=== PATIENT | male | born 1945 | race Two or more races ===

== ENCOUNTER 2020-12-28 08:47 | Outpatient (REF) | payer MEDICARE, SELFPAY ==
[2020-12-28 11:47] LABS: Hematocrit 42.7 % (42-52); Mean Corpuscular HGB Conc 32.8 g/dl (31.0-36.0); Mean Corpuscular Volume 94.5 fL (80-98); Mean Platelet Volume 11.5 fL (9.4-12.4); Platelet Count 187 X10*3/uL (160-400); Red Blood Count 4.52 X10*6/uL (4.60-5.80); Red Cell Distribution Width 12.4 % (11.0-16.0)
[2020-12-28 12:17] LABS: Alanine Aminotransferase 20 U/L (0-40); Albumin Level 4.3 g/dL (3.5-5.0); Alkaline Phosphatase 79 U/L (39-117); Anion Gap 11 (12-20); Aspartate Amino Transferase 17 U/L (5-37); Bilirubin Total 2.1 mg/dL (0.0-1.0); Blood Urea Nitrogen 18 mg/dL (9-16); Calcium 9.2 mg/dL (8.4-10.2); Carbon Dioxide 26 mmol/L (22-29); Chloride 110 mmol/L (96-108); Estimated Glomerular Filt Rate > 60; Glucose Random 80 mg/dL (60-115); Lipase 21 U/L (8-78); Potassium 4.6 mmol/L (3.3-5.1); Sodium 142 mmol/L (135-145); Total Protein 6.5 g/dL (6.5-8.0)
[2020-12-31 15:16] LABS: Transglutaminase Ab IgG 1 U/mL; Transglutaminase IgA 1 U/mL
== END 2020-12-28 08:48 | disposition home or self-care (01) ==
LOC: HO.LAB 08:47
PROVIDERS: PCP Internal Medicine; Visit Provider Nurse Practitioner Family
DX: R10.11 Right upper quadrant pain (principal); R14.0 Abdominal distension (gaseous); R19.7 Diarrhea, unspecified; K58.9 Irritable bowel syndrome, unspecified; K63.89 Other specified diseases of intestine; R10.9 Unspecified abdominal pain; K58.2 Mixed irritable bowel syndrome; K57.90 Diverticulosis of intestine, part unspecified, without perforation or abscess without bleeding; Z79.899 Other long term (current) drug therapy
CPT/HCPCS: 36415; 80053; 83516; 83690; 85027; 86140; 99202

== ENCOUNTER 2021-01-03 12:33 | Outpatient (REF) | payer MEDICARE, SELFPAY | END 2021-01-03 12:34 | disposition home or self-care (01) | LOC: HO.LNP 12:33 | PROVIDERS: Visit Provider Nurse Practitioner Family | DX: K21.9 Gastro-esophageal reflux disease without esophagitis (principal) | CPT/HCPCS: 87338 ==

== ENCOUNTER 2021-02-07 12:38 | Outpatient (REF) | payer MEDICARE, SELFPAY ==
[2021-02-07 15:28] LABS: Bilirubin Direct 0.7 mg/dL (0.0-0.5); Gamma Glutamyl Transpeptidase 16 U/L (11-51)
== END 2021-02-07 12:39 | disposition home or self-care (01) ==
LOC: HO.LAB 12:38
PROVIDERS: PCP Internal Medicine; Referring Provider Internal Medicine; Visit Provider Nurse Practitioner Family
DX: R10.9 Unspecified abdominal pain (principal); K58.2 Mixed irritable bowel syndrome; R19.7 Diarrhea, unspecified; R74.8 Abnormal levels of other serum enzymes
CPT/HCPCS: 36415; 82248; 82977; 99212

== ENCOUNTER → 2021-03-07 07:13 | Outpatient (REF) | payer MEDICARE, SELFPAY ==
--- NOTE | ~2021-03-07 | NM_ITS ---
EXAMINATION: BILIARY TRACT IMAGING STUDY WITH CCK CLINICAL INFORMATION: Abdominal pain. Patient states abdominal pain for one year.. COMPARISON: No previous imaging studies are available for comparison.. TECHNIQUE: Serial gamma scintillation camera images were obtained over the abdomen for a total observation period of 92 minutes following the intravenous administration of 5 mCi Tc-99m Mebrofenin. FINDINGS: There is good concentration of activity in the liver by 5 minutes post injection. Biliary activity is visualized by 10 minutes. The gallbladder is well visualized by 35 minutes. Small bowel is well visualized by 25 minutes. At 90 minutes post radiopharmaceutical injection, a 30-minute infusion of 1.2 micrograms Sincalide was then begun and an additional 30 minutes of images were obtained. There is good emptying of the gallbladder. By the end of the study there is good clearance of activity from the liver and visualization of diffuse small bowel activity. The calculated gallbladder ejection fraction is 72% (normal gallbladder ejection fraction is greater than 35%). NM/NM hepatobiliary w pharm IMPRESSION: Visualization of the gallbladder is evidence of a patent cystic duct and strong evidence against the diagnosis of acute cholecystitis. The common bile duct is patent. Gallbladder emptying and ejection fraction are normal. Liver function appears normal.
== END ==
LOC: HO.NUCMED 07:13
PROVIDERS: Visit Provider Nurse Practitioner Family
DX: R10.9 Unspecified abdominal pain (principal)
CPT/HCPCS: 78227; A9537; J2805

== ENCOUNTER 2021-03-15 09:27 | Outpatient (REF) | payer MEDICARE, SELFPAY ==
[2021-03-15 12:09] LABS: Bilirubin Direct 0.8 mg/dL (0.0-0.5); C Reactive Protein 0.14 mg/dL (< or = 0.50)
== END 2021-03-15 09:28 | disposition home or self-care (01) ==
LOC: HO.LAB 09:27
PROVIDERS: PCP Internal Medicine; Referring Provider Internal Medicine; Visit Provider Nurse Practitioner Family
DX: R10.9 Unspecified abdominal pain (principal); R14.0 Abdominal distension (gaseous); R17 Unspecified jaundice; K58.9 Irritable bowel syndrome, unspecified
CPT/HCPCS: 36415; 82248; 86140; 99212

== ENCOUNTER 2021-03-17 08:21 | Outpatient (REF) | payer MEDICARE, SELFPAY ==
[2021-03-17 09:31] LABS: Bilirubin Direct 0.7 mg/dL (0.0-0.5)
[2021-03-17 09:41] LABS: HIV AB/AG Nonreactive (Nonreactive); HIV Num 1 0.07 S/CO (0.00-0.99); ~HepC Num1 0.06 S/CO (0.00-0.79); ~Hepatitis C Antibody Nonreactive (Nonreactive)
[2021-03-17 09:46] LABS: HBS Num1 0.52 mIU/mL (0-7.99); HBc Num1 0.05 S/CO (0.00-0.79); Hepatitis A Antibody IgM 0.14 Index (0-0.79); Hepatitis B Core Antibody Nonreactive (Nonreactive); Hepatitis B Surface Antigen Negative (Negative); ~Hepatitis A Antibody IgM Nonreactive (Nonreactive); ~Hepatitis B Surface Antibody NONREACTIVE (Nonreactive)
[2021-03-17 09:53] LABS: Erythrocyte Sedimentation Rate 6 MM/HR (0-15); Ferritin 97 ng/mL (20-250)
[2021-03-18 11:42] LABS: Ceruloplasmin 31 mg/dL (18-36)
[2021-03-20 12:41] LABS: Alpha Fetoprotein 1.7 ng/mL (<6.1)
[2021-03-20 12:56] LABS: Anti Nuclear Antibody Screen NEGATIVE (NEGATIVE)
[2021-03-22 14:07] LABS: Mitochondrial Antibodies NEGATIVE (NEGATIVE)
[2021-03-22 16:02] LABS: Smooth Muscle Antibody <20 U (<20)
[2021-03-23 18:32] LABS: FIB-ALT 11 U/L (9-46); FIB-Alpha-2-Macroglobulin 336 mg/dL (106-279); FIB-Apolipoprotein A1 123 mg/dL (94-176); FIB-GGT 12 U/L (3-70); FIB-Haptoglobin 120 mg/dL (43-212); FIB-Total Bilirubin 2.7 mg/dL (0.2-1.2); Liver Fibrosis Score 0.84; Liver Fibrosis Stage F4; Nec Inflam Act Grade A0; Nec Inflam Act Score 0.07
== END 2021-03-17 08:22 | disposition home or self-care (01) ==
LOC: HO.LAB 08:21
PROVIDERS: PCP Internal Medicine; Visit Provider Nurse Practitioner Family
DX: R79.89 Other specified abnormal findings of blood chemistry (principal); R74.8 Abnormal levels of other serum enzymes; R17 Unspecified jaundice; R10.9 Unspecified abdominal pain
CPT/HCPCS: 36415; 81596; 82105; 82248; 82390; 82728; 85652; 86038; 86039; 86255; 86256; 86704; 86706; 86709; 86803; 87340; 87389

== ENCOUNTER 2021-03-17 08:48 | Outpatient (REF) | payer MEDICARE, SELFPAY ==
[2021-03-17 10:00] LABS: Leukocytes Stool Qualitative NEGATIVE (NEGATIVE)
[2021-03-22 21:56] LABS: Pancreatic Elastase-1 118 mcg/g
== END 2021-03-17 08:49 | disposition home or self-care (01) ==
LOC: HO.LNP 08:48
PROVIDERS: Visit Provider Nurse Practitioner Family
DX: R10.9 Unspecified abdominal pain (principal); R79.89 Other specified abnormal findings of blood chemistry; R74.8 Abnormal levels of other serum enzymes; R17 Unspecified jaundice
CPT/HCPCS: 82656; 87045; 87046; 89055

== ENCOUNTER 2021-04-11 10:02 | Outpatient (REF) | payer MEDICARE, SELFPAY ==
--- NOTE | ~2021-04-11 | MR_ITS ---
EXAMINATION: MR ABDOMEN WITHOUT AND WITH CONTRAST CLINICAL INFORMATION: Abdominal pain for the past 2 years with elevated liver enzymes. COMPARISON: None. TECHNIQUE: MR abdomen was performed without and with use of 6 mL intravenous Gadavist gadolinium contrast. Postcontrast images are performed in multiphase dynamic sequences. Imaging was performed in 3 planes. FINDINGS: LUNG BASES: Mild cardiomegaly. Lung bases are clear. LIVER, GALLBLADDER, AND BILIARY TREE: The liver is normal in size and shape with some decreased T2 signal and minimal gain of signal in the ajn-vw-huqch dual-echo images, suggesting the possibility of iron overload. There are no focal liver lesions. The gallbladder is within normal limits. There is no biliary ductal dilatation. PANCREAS: Mildly atrophic without focal abnormalities. The main pancreatic duct is nondilated. SPLEEN: Normal. ADRENAL GLANDS: Normal. KIDNEYS AND URETERS: The kidneys are normal in size, shape, and enhance symmetrically. There are several subcentimeter T2 bright avascular lesions, favoring to represent cysts. One of these lesions in the lateral surface of the midpole of the right kidney is T2 dark and T1 bright most consistent with a proteinaceous/hemorrhagic cyst. No hydronephrosis. No perinephric stranding. GASTROINTESTINAL TRACT: Small hiatal hernia. No bowel obstruction. No ascites or fluid collection. ABDOMINAL WALL: No significant hernia is appreciated. LYMPH NODES: No lymphadenopathy. VASCULAR: Unremarkable. OSSEOUS STRUCTURES: No acute or aggressive osseous abnormalities. MR/MR abdomen wo/w con IMPRESSION: Decreased T2 signal of the liver with some minimal gain of signal in the tvt-iq-ledpn dual-echo images, suggesting the possibility of iron overload. Otherwise, the liver is normal in size and shape without focal lesions.
[2021-04-11 09:06] LABS: Blood Urea Nitrogen 21 mg/dL (9-16); Estimated Glomerular Filt Rate > 60
[2021-04-12 23:26] LABS: Immunoglobulin G Subclass 1 259 mg/dL (382-929); Immunoglobulin G Subclass 2 376 mg/dL (241-700); Immunoglobulin G Subclass 3 54 mg/dL (22-178); Immunoglobulin G Subclass 4 18.2 mg/dL (4-86); Immunoglobulin G Total 764 mg/dL (600-1540)
== END 2021-04-11 10:03 | disposition home or self-care (01) ==
LOC: HO.MRI 10:02
PROVIDERS: Visit Provider Nurse Practitioner Family
DX: K86.89 Other specified diseases of pancreas (principal); K74.60 Unspecified cirrhosis of liver; R10.11 Right upper quadrant pain
CPT/HCPCS: 36415; 74183; 82565; 82784; 84520; A9585

== ENCOUNTER 2021-04-21 07:55 | Outpatient (REF) | payer MEDICARE, SELFPAY ==
--- NOTE | ~2021-04-21 | US_ITS ---
EXAMINATION: US COMPLETE ABDOMEN WITH LIVER ELASTOGRAPHY CLINICAL INFORMATION: Abnormal LFTs. COMPARISON: None. TECHNIQUE: Real-time imaging of the abdominal viscera. Noninvasive ultrasound liver fibrosis assessment is performed using Kris ElastPQ point quantification shear wave elastography (pSWE) with a C5-2 MHz transducer. Multiple elastography samples are obtained. FINDINGS: PANCREAS: Normal. The visualized pancreatic head and body are normal in appearance. The remainder of the pancreas is obscured from visualization by the overlying bowel gas. ABDOMINAL AORTA: The proximal, middle, and distal aortic segments are normal in caliber. INFERIOR VENA CAVA: Visualized portions are normal. LIVER: The liver demonstrates normal size, contour and echogenicity. No focal lesion or intrahepatic biliary duct dilatation. There are multiple echogenic calcifications with the largest calcification measuring 3.2 cm long. The right lobe measures 16.1 cm in length. The left lobe measures 10.2 cm in length. Portal flow is hepatopedal. Shear wave liver elastography median stiffness is 1.35 m/s (reference: normal median stiffness is 1.3 m/s or less). IQR/median stiffness to assess sampling precision is 0.05 (reference: good quality data set is IQR/median stiffness of 0.15 or less). GALLBLADDER: Normal. The gallbladder is physiologically distended without evidence of stones, sludge, polyps, wall thickening or pericholecystic fluid. COMMON BILE DUCT: Normal in caliber measuring 0.5 cm in diameter. RIGHT KIDNEY: There are several anechoic cysts. The largest cyst midpole measures 1.4 x 1.0 x 1.3 cm. Smaller cyst laterally in the midpole measures 0.8 x 0.5 x 0.8 cm. No hydronephrosis. No renal calculi or focal parenchymal lesions. The kidney measures 10.3 cm in maximum dimension. LEFT KIDNEY: Normal. No hydronephrosis. No renal calculi or focal parenchymal lesions. The kidney measures 10.9 cm in maximum dimension. SPLEEN: Normal. The spleen measures 12.1 cm in maximum dimension. FREE FLUID: None. US/US abdomen comp w elastography IMPRESSION: 1. There are multiple echogenic clustered linear calcifications, together measures 3.2 cm in length. No solid liver lesion seen. Right renal cysts largest measuring 1.4 cm. 2. Liver elastography: Median liver stiffness measures 1.35 m/s, borderline. cACLD ruled out. REFERENCE: Society of Radiologists in Ultrasound Liver Stiffness Thresholds (2020): LIVER STIFFNESS THRESHOLDS: *Liver Stiffness equal or less than 1.3 m/s: High probability of being normal. *Liver Stiffness less than 1.7 m/s: In the absence of other known clinical signs, rules out compensated advanced chronic liver disease. *Liver Stiffness 1.7-2.1 m/s: Suggestive of compensated advanced chronic liver disease but need further test for confirmation. *Liver Stiffness over 2.1 m/s: Rules in compensated advanced chronic liver disease. *Liver Stiffness over 2.4 m/s: Suggestive of clinically significant portal hypertension. QUALITY OF DATA SET: *IQR/Median value equal or less than 0.15 implies a quality data set. *IQR/Median value over 0.15 implies a poor quality data set. SIGNIFICANT CHANGE FROM PRIOR EXAM: Significant change if liver stiffness measurement is 10% or greater from prior exam. OTHER CONSIDERATIONS: The stage of liver fibrosis may be overestimated in the setting of acute hepatitis, liver inflammation, elevated liver function tests, hepatic vascular congestion, obstructive cholestasis, nonfasting state, and infiltrative diseases such as amyloidosis and lymphoma. In some patients with NAFLD, the liver stiffness thresholds for compensated advanced chronic liver disease may be lower. In causes other than viral hepatitis and NAFLD, liver stiffness thresholds are not well established.
== END 2021-04-21 07:56 | disposition home or self-care (01) ==
LOC: HO.US 07:55
PROVIDERS: PCP Internal Medicine; Visit Provider Nurse Practitioner Family
DX: R74.8 Abnormal levels of other serum enzymes (principal); Q61.02 Congenital multiple renal cysts
CPT/HCPCS: 76705; 76981

== ENCOUNTER → 2021-05-03 07:02 | Outpatient (REF) | payer MEDICARE, SELFPAY ==
--- NOTE | ~2021-05-03 | NM_ITS ---
EXAMINATION: MA RADIONUCLIDE SOLID FOOD GASTRIC EMPTYING 4-HOUR STUDY CLINICAL INFORMATION: Abdominal distention COMPARISON: None TECHNIQUE: A standard meal consisting of 4 oz of Egg Beaters brand tagged with 1 microcuries Tc-99m Sulfur Colloid, 8 oz water and 2 slices of toast with jelly was administered orally to the patient. Images were obtained using a dual head gamma camera in the anterior and posterior projections over of the stomach immediately post ingestion and at hourly intervals up to 4 hours post ingestion. The anterior and posterior counts at each time interval were averaged using the geometric mean and expressed as percentage of the immediate post ingestion counts. FINDINGS: There is good visualization of activity in the stomach immediately post ingestion. As the study progresses, there is good clearance of activity from the stomach and visualization of progressively increasing small bowel activity. By the end of the study, there is almost no retention noted in the stomach. Retention in the stomach at each time interval was: 1 hour 52% (normal 37%-90%) 2 hours 18% (normal 30%-60%) 3 hours 6% 4 hour image not obtained NM/MA gastric emptying study IMPRESSION: Prompt gastric emptying. No scintigraphic evidence for delayed gastric emptying
[2021-05-03 08:01] LABS: Hematocrit 43.2 % (42.0-52.0); Hemoglobin 14.1 g/dl (14.0-18.0); Mean Corpuscular HGB Conc 32.6 g/dl (31.0-36.0); Mean Corpuscular Hemoglobin 31.3 pg (27.0-33.0); Mean Platelet Volume 12.5 fL (9.4-12.4); Platelet Count 135 X10*3/uL (160-400); Red Cell Distribution Width 12.4 % (11.0-16.0); White Blood Count 8.6 X10*3/uL (4.8-10.8)
[2021-05-03 08:04] LABS: Prothrombin Time 11.6 SEC (9.9-13.0)
[2021-05-03 08:24] LABS: Alanine Aminotransferase 20 U/L (0-40); Albumin Level 4.4 g/dL (3.5-5.0); Alkaline Phosphatase 98 U/L (39-117); Aspartate Amino Transferase 17 U/L (5-37); Bilirubin Direct 0.7 mg/dL (0.0-0.5); Bilirubin Total 2.2 mg/dL (0.0-1.0); Iron 102 mcg/dL (45-160); Percent Iron Saturation 39 % (15-50); Total Iron Binding Capacity 263 mcg/dL (228-428); Total Protein 6.8 g/dL (6.5-8.0); Unsaturated Iron Binding 161 ug/dL
[2021-05-03 08:57] LABS: Folate 18.5 ng/mL (> or = 4.0); Vitamin B12 205 pg/mL (200-900)
[2021-05-07 15:01] LABS: Vitamin D 25-OH, D2 <4 ng/mL; Vitamin D 25-OH, D3 19 ng/mL; Vitamin D 25-OH, Total 19 ng/mL (30-100)
== END ==
LOC: HO.NUCMED 07:02
PROVIDERS: PCP Internal Medicine; Visit Provider Nurse Practitioner Family
DX: R19.7 Diarrhea, unspecified (principal); E55.9 Vitamin D deficiency, unspecified; K74.60 Unspecified cirrhosis of liver; R14.0 Abdominal distension (gaseous)
CPT/HCPCS: 36415; 78264; 80076; 82306; 82607; 82746; 83540; 85027; 85610; A9541

== ENCOUNTER → 2021-05-10 09:52 | Outpatient (BNVA) | payer MEDICARE, SELFPAY | PROVIDERS: PCP Internal Medicine; Referring Provider Internal Medicine; Visit Provider Nurse Practitioner Family | DX: K86.89 Other specified diseases of pancreas (principal); K59.04 Chronic idiopathic constipation; K75.81 Nonalcoholic steatohepatitis (NASH); K74.60 Unspecified cirrhosis of liver; R10.9 Unspecified abdominal pain; R14.0 Abdominal distension (gaseous) | CPT/HCPCS: 99212 ==

== ENCOUNTER → 2021-05-24 10:48 | Outpatient (BNVA) | payer MEDICARE, SELFPAY | PROVIDERS: PCP Internal Medicine; Referring Provider Internal Medicine; Visit Provider Nurse Practitioner Family | DX: K86.89 Other specified diseases of pancreas (principal); K75.81 Nonalcoholic steatohepatitis (NASH); K74.60 Unspecified cirrhosis of liver; R10.9 Unspecified abdominal pain | CPT/HCPCS: 99212 ==

== ENCOUNTER 2021-11-07 11:16 | Outpatient (REF) | payer MEDICARE, SELFPAY ==
[2021-11-07 12:30] LABS: Amylase 69 U/L (28-100); Lipase 15 U/L (8-78)
[2021-11-12 13:37] LABS: Vitamin D 25-OH, D2 <4 ng/mL; Vitamin D 25-OH, D3 25 ng/mL; Vitamin D 25-OH, Total 25 ng/mL (30-100)
== END 2021-11-07 11:17 | disposition home or self-care (01) ==
LOC: HO.LAB 11:16
PROVIDERS: PCP Family Medicine; Visit Provider Nurse Practitioner Family
DX: K86.89 Other specified diseases of pancreas (principal); R10.9 Unspecified abdominal pain; K75.81 Nonalcoholic steatohepatitis (NASH); K74.60 Unspecified cirrhosis of liver; K58.9 Irritable bowel syndrome, unspecified; E55.9 Vitamin D deficiency, unspecified
CPT/HCPCS: 36415; 82150; 82306; 83690; 99212

== ENCOUNTER 2022-03-07 11:11 | Outpatient (REF) | payer MEDICARE, SELFPAY ==
[2022-03-07 13:03] LABS: Lipase 30 U/L (8-78)
[2022-03-07 13:27] LABS: TSH reflex Free T4 1.79 uIU/mL (0.32-4.0)
== END 2022-03-07 11:12 | disposition home or self-care (01) ==
LOC: HO.LAB 11:11
PROVIDERS: PCP Internal Medicine; Visit Provider Nurse Practitioner Family
DX: K58.1 Irritable bowel syndrome with constipation (principal); K86.89 Other specified diseases of pancreas; K75.81 Nonalcoholic steatohepatitis (NASH); K74.60 Unspecified cirrhosis of liver
CPT/HCPCS: 36415; 83690; 84443; 99212

== ENCOUNTER → 2022-06-01 10:22 | Outpatient (BNVA) | payer MEDICARE, SELFPAY | PROVIDERS: PCP Internal Medicine; Visit Provider Nurse Practitioner Family | DX: K86.89 Other specified diseases of pancreas (principal); R10.9 Unspecified abdominal pain; R14.0 Abdominal distension (gaseous); K58.9 Irritable bowel syndrome, unspecified | CPT/HCPCS: 99212 ==

== ENCOUNTER 2022-06-27 08:47 | Outpatient (REF) | payer MEDICARE, SELFPAY ==
--- NOTE | ~2022-06-27 | MR_ITS ---
EXAMINATION: MR ABDOMEN WITHOUT AND WITH CONTRAST CLINICAL INFORMATION: Pancreatic insufficiency, abdominal discomfort. COMPARISON: MR abdomen 04/11/2021 TECHNIQUE: MRI of the abdomen before and after the IV administration of 5.5 mL of Gadavist was obtained using routine sequences. Heavily T2 weighted MRCP sequences were also obtained. FINDINGS: Exam is limited by the ssyev-ho-nnxh portions of the liver, spleen, stomach, the kidneys and right adrenal gland were excluded from the axial kvtnu-go-atvo, including a dynamic postcontrast sequences. LUNG BASES: The visualized lung bases are unremarkable. KIDNEYS AND URETERS: Unremarkable where imaged. GALLBLADDER: Unremarkable. LIVER AND BILIARY TREE: Unremarkable where imaged. PANCREAS: Pancreas is mildly atrophic. No pancreatic duct dilatation. No variant pancreatic ductal anatomy. No peripancreatic fluid collection or peripancreatic inflammatory change. SPLEEN: Unremarkable where imaged. ADRENAL GLANDS: Unremarkable where imaged. GASTROINTESTINAL TRACT: Unremarkable where imaged. LYMPH NODES: No lymphadenopathy. VASCULAR: Unremarkable ABDOMINAL WALL: Unremarkable. OSSEOUS STRUCTURES: T2 hyperintense signal in the T12 vertebral body with saturates out on fat suppression which may reflect focal fatty infiltration. MR/MR abdomen wo/w con IMPRESSION: Pancreas is mildly atrophic. No pancreatic duct dilatation or variant pancreatic ductal anatomy. Exam is limited by the xlviv-sb-suip, as detailed above and multiple solid organs were not included. Patient can return for repeat imaging at no charge if warranted.
== END 2022-06-27 08:48 | disposition home or self-care (01) ==
LOC: HO.MRI 08:47
PROVIDERS: Visit Provider Nurse Practitioner Family
DX: R10.9 Unspecified abdominal pain (principal); K86.89 Other specified diseases of pancreas
CPT/HCPCS: 74183; A9585

== ENCOUNTER → 2022-08-27 08:57 | Outpatient (BNVA) | payer MEDICARE, SELFPAY | PROVIDERS: PCP Internal Medicine; Visit Provider Nurse Practitioner Family | DX: K58.2 Mixed irritable bowel syndrome (principal); K86.89 Other specified diseases of pancreas; Z79.899 Other long term (current) drug therapy | CPT/HCPCS: 99212 ==

== ENCOUNTER 2022-12-31 08:36 | Outpatient (REF) | payer MEDICARE, SELFPAY ==
[2022-12-31 11:02] LABS: Alanine Aminotransferase 38 U/L (0-40); Albumin Level 4.1 g/dL (3.5-5.0); Alkaline Phosphatase 89 U/L (39-117); Aspartate Amino Transferase 24 U/L (5-37); Bilirubin Direct 0.3 mg/dL (0.0-0.5); Bilirubin Total 3.2 mg/dL (0.0-1.0); Lipase 9 U/L (8-78); Magnesium 2.1 mg/dL (1.6-2.6); Total Protein 6.5 g/dL (6.5-8.0)
[2022-12-31 11:32] LABS: Folate 15.3 ng/mL (> or = 4.0); Vitamin B12 358 pg/mL (200-900)
[2023-01-04 15:08] LABS: Vitamin D 25-OH, D2 <4 ng/mL; Vitamin D 25-OH, D3 20 ng/mL; Vitamin D 25-OH, Total 20 ng/mL (30-100)
[2023-01-07 15:43] LABS: Nicotinamide 21 ng/mL; Vit B3 - Nicotinic Acid <20 ng/mL
== END 2022-12-31 08:37 | disposition home or self-care (01) ==
LOC: HO.LAB 08:36
PROVIDERS: Visit Provider Nurse Practitioner Family
DX: R10.9 Unspecified abdominal pain (principal); R19.7 Diarrhea, unspecified; E55.9 Vitamin D deficiency, unspecified; K86.89 Other specified diseases of pancreas; K58.2 Mixed irritable bowel syndrome
CPT/HCPCS: 36415; 80076; 82306; 82607; 82746; 83690; 83735; 84591; 99212

== ENCOUNTER 2022-12-31 08:36 | Outpatient (AMB) | payer MEDICARE, SELFPAY ==
--- NOTE | 2022-12-31 08:54 | MHC.OFFVIS ---
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 Discussed with patient that higher dose could help him with abdominal bloating and loose stools. No change seen on MRI. Athrophic pancreas with no lesions. IBS (irritable bowel syndrome) Postprandial abdominal bloating and loose stools. Most likely related to patient's pancreatic insufficiency. Increase Creon for now. Discussed with him low FODMAP diet as well. Patient was encouraged to take Citrucel to help bulk stools. Patient will also try to get probiotic. Patient will take dicyclomine after 2 large meals to prevent cramping and loose stools. I will see the patient in 3 months, sooner on as needed basis. Patient and his family members are all agreeable to plan of care and verbalize understanding of instructions. They were given the opportunity to ask questions and all questions answered. ? Thank you for allowing me to participate in his care Plan Medications New unexlw-gdlvpzxh-bheviep 24,000-76,000 -120,000 unit (Creon) administer with meals and/or snacks 1 cap PO QID 120 caps 2RF K58.9 Discontinued wedrmu-lfrzpzou-rkfraqh 6,000-19,000 -30,000 unit (Creon) do not exceed 10,000 unit/kg lipase per 24 hrs Discontinued Reason: Doctor's Order 1 cap PO .qid ac 120 caps 3RF TODAY'S VISIT Patient is here today for. Patient is accompanied by his sister and [id number]. 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 Patient's family is helping as patient has memory issues. End of September patient was hospitalized for stroke. Symptoms were difficulty speaking and swallowing. Patient had aspiration pneumonia and was on antibiotics. Patient was sent to rehab after the admission for antibiotic therapy. Since then patient has last appetite. Not eating as much, however sister reports that he has not lost any weight. Patient last lose weight in the hospital. Patient denies any nausea or vomiting. Reports left upper quadrant pain, postprandial loose stools. Creon was changed to Zenpep during hospitalization. Patient still is taking that 4 times a day and reports to be doing well on it. Patient denies feeling constipated. Denies melena, hematochezia, unintentional weight loss or ribbon like stools. Patient denies dyspepsia, dysphagia or odynophagia. [facility] Medical History Irritable bowel syndrome Pancreatic insufficiency Surgical History History of esophagogastroduodenoscopy (EGD) Hx of colonoscopy Family History Mother HTN (hypertension) Cancer Sister HTN (hypertension) Cancer Father Cancer Social History Household Members: Family Alcohol intake: never Patient Tobacco Use Status: Never used Tobacco Review of Systems Const Denies weight gain and Denies weight loss ENT Reports no additional complaints, Denies dysphagia and Denies odynophagia Card Reports no additional complaints Resp Reports no additional complaints GI Reports abdominal pain, Denies belching, Denies melena, Reports bloating, Denies change in bowel habits, Denies dysphagia, Denies excessive flatus, Denies dyspepsia, Denies heartburn, Denies diarrhea, Denies loose stools, Denies nausea, Denies odynophagia and Denies vomiting Reports no additional complaints Musc Reports no additional complaints Neuro Reports no additional complaints Psych Reports no additional complaints Endo Reports no additional complaints Physical Exam Vital Signs: Last Vital Signs Pulse 48 L 12/31/22 08:55 BP 161/72 H 12/31/22 08:55 BMI result Body Mass Index 19.5 Const General: healthy appearing, no acute distress and well developed Nutritional Appearance: well nourished Orientation/consciousness: patient oriented x3 HEENT Head: Yes normal to inspection, Yes normocephalic and Yes atraumatic Face and sinus: Yes normal facial exam Mouth: Normal oral and palatal mucosa present Throat: Yes posterior oropharynx normal, Yes tonsils normal and Yes uvula midline Eyes General: appearance normal, both eyes and all related structures Neck Neck: Yes normal visual inspection, Yes full ROM and Yes trachea midline Thyroid: Thyroid normal Resp Effort & Inspection: normal respiratory effort, able to speak in complete sentences, no tracheal deviation and symmetric chest movement Auscultation: clear to auscultation bilaterally Cardio Rate: regular rate Heart sounds: S1 normal heart sound present and S2 normal heart sound present GI Inspection: Yes normal to inspection and No distended Palpation (GI): Soft to palpation, not firm, nontender and No hepatosplenomegaly present Auscultation: normal bowel sounds General: Yes no CVA tenderness Back/Spine/Pelvis Back: no CVA tenderness Skin General skin exam: elasticity normal, turgor normal and dry skin Neuro General: patient oriented x3 Psych Appearance: grossly normal Mental Status: mental status grossly normal Speech and movement: Normal speech and movement present Affect: normal affect Assessment & Plan Assessment & Plan (1) Pancreatic insufficiency: Code(s): K86.89 - Other specified diseases of pancreas Plan: Continue enzyme therapy. (2) IBS (irritable bowel syndrome): Code(s): K58.9 - Irritable bowel syndrome without diarrhea Qualifiers: Irritable bowel syndrome type: with both diarrhea and constipation Qualified Code(s): K58.2 - Mixed irritable bowel syndrome Plan: Postprandial loose stools. Patient was encouraged to avoid dietary triggers. Follow FODMAP diet. Will check vitamin-D, B12, B6, magnesium levels will check lipase and liver enzymes. Will follow up with patient in 6 months, sooner on as needed basis. Patient and his sister are agreeable to plan of care and verbalizes understanding of instructions. They were given the opportunity to ask questions and all questions answered. Thank you for allowing me to participate in his care Orders: Orders Lipase Today R10.9 - Unspecified abdominal pain Liver Panel Today R10.9 - Unspecified abdominal pain Vitamin B12 and Folate Today R19.7 - Diarrhea, unspecified Vitamin D 25-OH (D2 and D3) Today E55.9 - Vitamin D deficiency, unspecified Vitamin B3 (Niacin) Today K86.89 - Other specified diseases of pancreas Magnesium Today K58.9 - Irritable bowel syndrome without diarrhea, K86.89 - Other specified diseases of pancreas Medications: New lxoydp-ssryuwak-glltxyp 20,000-63,000- 84,000 unit (Zenpep) administer with meals and/or snacks 1 cap PO BID 120 caps 3RF Refilled methylcellulose (laxative) (Citrucel) take it with full glass of water 500 mg PO DAILY 90 tabs 2RF K59.00 - Constipation, unspecified Discontinued jimbfy-kdumrqou-cttlkmm 24,000-76,000 -120,000 unit (Creon) administer with meals and/or snacks Discontinued Reason: Doctor's Order 1 cap PO QID 120 caps 2RF K58.9 - Irritable bowel syndrome without diarrhea Coding Level of Care Code Est Pt Level 4 (71099) Diagnoses Pancreatic insufficiency K86.89 IBS (irritable bowel syndrome) K58.2 Irritable bowel syndrome type: with both diarrhea and constipation Time Spent (min) 35 Comment 20 minutes spent with patient and additional 15 minutes spent reviewing his records
[2022-12-31 08:55] VITALS: BP 161/72; PULSE 48; BMI 19.5
== END 2022-12-31 09:24 | disposition home or self-care (01) ==
PROVIDERS: Visit Provider Nurse Practitioner Family
DX: K86.89 Other specified diseases of pancreas (principal); K58.2 Mixed irritable bowel syndrome
CPT/HCPCS: 99214

== ENCOUNTER 2023-03-27 15:18 | Outpatient (AMB) | payer MEDICARE, SELFPAY ==
[2023-03-27 15:19] VITALS: BP 178/70; PULSE 51; O2SAT 100; BMI 18.6
--- NOTE | 2023-03-27 15:19 | MHC.OFFVIS ---
Intake Vital Signs 03/27/23 15:19 Height 5 ft 5 in Weight 111 lb 15.917 oz BMI 18.6 BP 178/70 H Blood Pressure Location Lt brachial Position Sitting Pulse 51 Pulse Source Pulse Oximeter Pulse Oximetry (%) 100 Oxygen Delivery Method Room Air Intake Visit Reasons: jaundice Intake Note: Pt presents to the office today for c/o jaundice. Pts nephew states that he went to [facility] due to a hernia in February and pts nephew said bloods test were done and his PCP was concerned about his billirubin results. Pt states he gets diarrhea sometimes but denies nausea or vomiting. Accompanied by: Sister Allergies No Known Allergies Allergy (Verified 03/27/23 15:24) HPI jaundice HPI Details LAST VISIT Pancreatic insufficiency Continue enzyme therapy. IBS (irritable bowel syndrome) Postprandial loose stools. Patient was encouraged to avoid dietary triggers. Follow FODMAP diet. Will check vitamin-D, B12, B6, magnesium levels will check lipase and liver enzymes. Will follow up with patient in 6 months, sooner on as needed basis. Patient and his sister are agreeable to plan of care and verbalizes understanding of instructions. They were given the opportunity to ask questions and all questions answered. ? Thank you for allowing me to participate in his care Plan Orders Lipase Today R10.9 - Unspecified abdominal pain Liver Panel Today R10.9 - Unspecified abdominal pain Vitamin B12 and Folate Today R19.7 - Diarrhea, unspecified Vitamin D 25-OH (D2 and D3) Today E55.9 - Vitamin D deficiency, unspecified Vitamin B3 (Niacin) Today K86.89 - Other specified diseases of pancreas Magnesium Today K58.9 - Irritable bowel syndrome without diarrhea, K86.89 - Other specified diseases of pancreas TODAY'S VISIT: Patient is here today accompanied by his nephew and his sister. Patient's PCP send him to us for concern about increase in his bilirubin. Patient's bilirubin total has always been elevated. Conjugated bilirubin has been normal. Patient has not experienced any jaundice. Liver enzymes were all normal. Patient has been in the ER for left lower quadrant pain as well as right upper quadrant discomfort. Patient was found to have hyperbilirubinemia with normal conjugated bilirubin. Small fat containing inguinal hernia found in the left lower quadrant. Patient was to follow-up with surgery as an outpatient. Patient reports that otherwise he has been feeling fairly well. Sister reports that better than before. Patient does have more appetite, moves his bowels better. Takes his enzyme with food. Patient however still does not eat more than 2 times a day. We did discuss before about patient eating more often, trying protein shakes. Patient denies any nausea or vomiting. Denies any melena, hematochezia, dyspepsia, dysphagia or odynophagia. Occasional postprandial abdominal bloating. PENDING SALE TO [facility] Medical History (Updated 04/11/23 @ 19:20 by Kim Perez, [facility]) Gilbert's disease Pancreatic insufficiency Irritable bowel syndrome Surgical History History of esophagogastroduodenoscopy (EGD) Hx of colonoscopy Family History Mother HTN (hypertension) Cancer Sister HTN (hypertension) Cancer Father Cancer Social History Household Members: Family Alcohol intake: never Patient Tobacco Use Status: Never used Tobacco Review of Systems Const Denies weight gain and Denies weight loss ENT Reports no additional complaints, Denies dysphagia and Denies odynophagia Card Reports no additional complaints Resp Reports no additional complaints GI Reports abdominal pain (Right lower quadrant, status post inguinal hernia surgery), Denies belching, Denies melena, Denies bloating, Denies change in bowel habits, Denies dysphagia, Denies excessive flatus, Denies dyspepsia, Denies heartburn, Denies diarrhea, Denies loose stools, Denies nausea, Denies odynophagia and Denies vomiting Reports no additional complaints Musc Reports no additional complaints Neuro Reports no additional complaints Psych Reports no additional complaints Endo Reports no additional complaints Physical Exam Vital Signs: Last Vital Signs Pulse 51 03/27/23 15:19 BP 178/70 H 03/27/23 15:19 Pulse Ox 100 03/27/23 15:19 Oxygen Delivery Method Room Air 03/27/23 15:19 BMI result Body Mass Index 18.6 Const General: healthy appearing, no acute distress and well developed Nutritional Appearance: well nourished Orientation/consciousness: patient oriented x3 HEENT Head: Yes normal to inspection, Yes normocephalic and Yes atraumatic Face and sinus: Yes normal facial exam Mouth: Normal oral and palatal mucosa present Throat: Yes posterior oropharynx normal, Yes tonsils normal and Yes uvula midline Eyes General: appearance normal, both eyes and all related structures Neck Neck: Yes normal visual inspection, Yes full ROM and Yes trachea midline Thyroid: Thyroid normal Resp Effort & Inspection: normal respiratory effort, able to speak in complete sentences, no tracheal deviation and symmetric chest movement Auscultation: clear to auscultation bilaterally Cardio Rate: regular rate Heart sounds: S1 normal heart sound present and S2 normal heart sound present GI Inspection: Yes normal to inspection and No distended Palpation (GI): Soft to palpation, not firm, Tenderness to palpation present (GI) in the LLQ and No hepatosplenomegaly present Auscultation: normal bowel sounds General: Yes no CVA tenderness Back/Spine/Pelvis Back: no CVA tenderness Skin General skin exam: elasticity normal, turgor normal and dry skin Neuro General: patient oriented x3 Psych Appearance: grossly normal Mental Status: mental status grossly normal Results Reviewed Results Reviewed: Laboratory Tests 12/31/22 10:12 Total Bilirubin 3.2 H Direct Bilirubin 0.3 AST 24 ALT 38 Lipase 9 Nicotinic Acid <20 Nicotinamide 21 Vitamin B12 358 25-OH Vitamin D Total 20 L Folate 15.3 Assessment & Plan Assessment & Plan (1) Pancreatic insufficiency: Code(s): K86.89 - Other specified diseases of pancreas (2) IBS (irritable bowel syndrome): Code(s): K58.9 - Irritable bowel syndrome without diarrhea Qualifiers: Irritable bowel syndrome type: without diarrhea Qualified Code(s): K58.9 - Irritable bowel syndrome without diarrhea (3) Gilbert's disease: Code(s): E80.4 - Gilbert syndrome Plan Patient was encouraged to continue enzyme therapy. Increase fluid intake. Continue taking MiraLax daily. Decrease coffee intake. Avoid dietary triggers and late night snacking. Patient had negative workup while in the hospital for hyperbilirubinemia. Most likely this is Gilbert's syndrome with normal conjugated bilirubin. Patient was not jaundiced. Encourage patient to drink plenty fluids. I will see patient in 5 months will recheck his blood work then and will send him for ultrasound. Patient and his family are all agreeable to plan of care and verbalizes understanding of instructions. They were given the opportunity to ask questions and all questions answered. Thank you for allowing me to participate in his care Coding Level of Care Code Est Pt Level 4 (50031) Diagnoses Pancreatic insufficiency K86.89 Irritable bowel syndrome without diarrhea K58.9 Irritable bowel syndrome type: without diarrhea Gilbert's disease E80.4 Time Spent (min) 40 Comment 25 minutes spent with patient and additional 15 minutes spent reviewing his records
== END 2023-03-27 16:02 | disposition home or self-care (01) ==
PROVIDERS: Visit Provider Nurse Practitioner Family
DX: K86.89 Other specified diseases of pancreas (principal); K58.9 Irritable bowel syndrome, unspecified; E80.4 Gilbert syndrome
CPT/HCPCS: 99214

== ENCOUNTER → 2023-03-27 15:18 | Outpatient (BNVA) | payer MEDICARE, SELFPAY | PROVIDERS: Visit Provider Nurse Practitioner Family | DX: K86.89 Other specified diseases of pancreas (principal); K58.9 Irritable bowel syndrome, unspecified; E80.4 Gilbert syndrome | CPT/HCPCS: 99212 ==

== ENCOUNTER 2023-11-18 09:17 | Outpatient (AMB) | payer MEDICARE, SELFPAY ==
--- NOTE | 2023-11-18 09:18 | A.OFFVIS_ITS ---
Vital Signs 11/18/23 09:41 Height 5 ft 5 in Weight 125 lb 3.561 oz BMI 20.8 BP 152/64 H Blood Pressure Location Rt brachial Position Sitting Pulse 46 L Pulse Source Pulse Oximeter Pulse Oximetry (%) 99 Oxygen Delivery Method Room Air Intake Visit Reasons: follow up req from pt and Jasmin Intake Note: Ray presents in office today for a requested FUV by both pt and other libertarian. CC: Pt and family report that the pt has been doing well and is not having any significant changes or concerns at this time. Pt family denies any need for medication refills. Concierge Receptionist Required: Yes Concierge Receptionist Name: [id number] Information Interpreted: non-clinical & clinical Accompanied by: Family/Other Allergies No Known Allergies Allergy (Verified 11/18/23 09:36) HPI HPI follow up req from pt and Jasmin: Details: LAST VISIT Pancreatic insufficiency IBS (irritable bowel syndrome) Gilbert's disease Plan Patient was encouraged to continue enzyme therapy. Increase fluid intake. Continue taking MiraLax daily. Decrease coffee intake. Avoid dietary triggers and late night snacking. Patient had negative workup while in the hospital for hyperbilirubinemia. Most likely this is Gilbert's syndrome with normal conjugated bilirubin. Patient was not jaundiced. Encourage patient to drink plenty fluids. I will see patient in 5 months will recheck his blood work then and will send him for ultrasound. Patient and his family are all agreeable to plan of care and verbalizes understanding of instructions. They were given the opportunity to ask questions and all questions answered. ? TODAY'S VISIT Patient is here today for follow-up. Patient reports that he has been doing quite well. Denies any abdominal pain or discomfort. Patient has been tolerating digestive enzymes well without any issues. Patient denies any postprandial abdominal bloating. Patient gained few lb. Reports that he has a good appetite. Sister and his [id number] are with patient. Patient denies any melena, hematochezia, unintentional weight loss or ribbon like stools. Patient denies any dyspepsia, dysphagia or odynophagia. Patient feels well. [facility] Medical History Gilbert's disease Pancreatic insufficiency Irritable bowel syndrome Surgical History History of esophagogastroduodenoscopy (EGD) Hx of colonoscopy Family History Mother HTN (hypertension) Cancer Sister HTN (hypertension) Cancer Father Cancer Social History Household Members: Family Alcohol intake: never Patient Tobacco Use Status: Never used Tobacco Review of Systems Const Denies weight gain and Denies weight loss ENT Reports no additional complaints, Denies dysphagia and Denies odynophagia Card Reports no additional complaints Resp Reports no additional complaints GI Denies abdominal pain, Denies belching, Denies melena, Denies bloating, Denies change in bowel habits, Denies dysphagia, Denies excessive flatus, Denies dyspepsia, Denies heartburn, Denies diarrhea, Denies loose stools, Denies nausea, Denies odynophagia and Denies vomiting Reports no additional complaints Musc Reports no additional complaints Neuro Reports no additional complaints Psych Reports no additional complaints Endo Reports no additional complaints Physical Exam Vital Signs: Last Vital Signs Pulse 46 L 11/18/23 09:41 BP 152/64 H 11/18/23 09:41 Pulse Ox 99 11/18/23 09:41 Oxygen Delivery Method Room Air 11/18/23 09:41 BMI result Body Mass Index 20.8 Const General: healthy appearing, no acute distress and well developed Nutritional Appearance: well nourished Orientation/consciousness: patient oriented x3 Resp Effort & Inspection: normal respiratory effort, able to speak in complete sentences, no tracheal deviation and symmetric chest movement Auscultation: clear to auscultation bilaterally Cardio Rate: regular rate Heart sounds: S1 normal heart sound present and S2 normal heart sound present GI Inspection: Yes normal to inspection and No distended Palpation (GI): Soft to palpation, not firm, Tenderness to palpation present (GI) in the LLQ and No hepatosplenomegaly present Auscultation: normal bowel sounds General: Yes no CVA tenderness Back/Spine/Pelvis Back: no CVA tenderness Skin General skin exam: elasticity normal, turgor normal and dry skin Neuro General: patient oriented x3 Psych Appearance: grossly normal Mental Status: mental status grossly normal Assessment & Plan Assessment & Plan (1) Pancreatic insufficiency: Code(s): K86.89 - Other specified diseases of pancreas Category: Medical (2) Gilbert's disease: Code(s): E80.4 - Gilbert syndrome Category: Medical (3) IBS (irritable bowel syndrome): Code(s): K58.9 - Irritable bowel syndrome without diarrhea Qualifiers: Irritable bowel syndrome type: without diarrhea Qualified Code(s): K58.9 - Irritable bowel syndrome without diarrhea Plan Continue with digestive enzymes. Patient no longer is using dicyclomine. Continue fiber on as needed basis. Follow-up in 6 months, sooner on as needed basis. Both patient and his family members are agreeable to plan of care and verbalizes understanding of instructions. They were given the opportunity to ask questions and all questions answered. Thank you for allowing me to participate in his care Coding Level of Care Code Est Pt Level 3 (17545) Diagnoses Pancreatic insufficiency K86.89 Gilbert's disease E80.4 Irritable bowel syndrome without diarrhea K58.9 Irritable bowel syndrome type: without diarrhea Time Spent (min) 25 Comment 15 minutes spent with patient and additional 10 minutes spent reviewing his records
[2023-11-18 09:41] VITALS: BP 152/64; PULSE 46; O2SAT 99; BMI 20.8
== END 2023-11-18 10:01 | disposition home or self-care (01) ==
PROVIDERS: Visit Provider Nurse Practitioner Family
DX: K86.89 Other specified diseases of pancreas (principal); E80.4 Gilbert syndrome; K58.9 Irritable bowel syndrome, unspecified
CPT/HCPCS: 99213

== ENCOUNTER → 2023-11-18 09:17 | Outpatient (BNVA) | payer MEDICARE, SELFPAY | PROVIDERS: Visit Provider Nurse Practitioner Family | DX: K86.89 Other specified diseases of pancreas (principal); E80.4 Gilbert syndrome; K58.9 Irritable bowel syndrome, unspecified | CPT/HCPCS: 99212 ==

== ENCOUNTER 2024-05-14 09:15 | Outpatient (AMB) | payer MEDICARE, SELFPAY ==
[2024-05-14 09:16] VITALS: BP 164/68; PULSE 52; O2SAT 100; BMI 20.8
--- NOTE | 2024-05-14 09:16 | MHC.OFFVIS ---
Vital Signs 05/14/24 09:16 Height 5 ft 5 in Weight 125 lb 3.561 oz BMI 20.8 BP 164/68 H Blood Pressure Location Lt brachial Position Sitting Pulse 52 Pulse Source Pulse Oximeter Pulse Oximetry (%) 100 Oxygen Delivery Method Room Air Intake Visit Reasons: 6 mos FUV. Intake Note: ESTABLISHED PATIENT Ray presents in office today for a scheduled 6 mos FUV. Meds and Allergies reviewed? Y No recent or relevant surgeries? N Any significant concerns or new changes? No significant changes or concerns per pt. Pharmacy verified? [facility]. Wire Frame Dipper Required: Yes Wire Frame Dipper Services: Wire Frame Dipper Offered & Declined Wire Frame Dipper Name: Family Information Interpreted: clinical only Accompanied by: Family/Other Allergies No Known Allergies Allergy (Verified 05/14/24 09:17) Medication List - Last Reconciled 05/14/24 by JANE Dozier- aspirin 1 tab PO DAILY atorvastatin 40 mg PO DAILY carvedilol 6.25 mg PO BID cholecalciferol (vitamin D3) 50 mcg PO DAILY clopidogrel 75 mg PO DAILY dwxsya-jaekwhru-zmowckp 20,000-63,000- 84,000 unit (Zenpep) 1 cap PO QID 90 days melatonin 6 mg PO BEDTIME methylcellulose (laxative) (Citrucel) 500 mg PO DAILY mirtazapine 30 mg PO BEDTIME polyethylene glycol 3350 (Miralax) 17 grams PO DAILY tamsulosin 0.4 mg PO DAILY thiamine HCl (vitamin B1) 100 mg PO DAILY valsartan 160 mg PO DAILY HPI HPI 6 mos FUV.: Details: LAST VISIT Pancreatic insufficiency Gilbert's disease IBS (irritable bowel syndrome) Plan Continue with digestive enzymes. Patient no longer is using dicyclomine. Continue fiber on as needed basis. Follow-up in 6 months, sooner on as needed basis. Both patient and his family members are agreeable to plan of care and verbalizes understanding of instructions. They were given the opportunity to ask questions and all questions answered. TODAY'S VISIT Patient is here today for follow-up. Patient reports that he has been feeling well since last visit. Patient reports that he is taking his enzymes and reports that is able to eat without any issues. Patient reports to have good appetite. He is here today with his sister. Patient's sister is cooking. Continues to avoid certain food like beef and fried food. Patient denies dyspepsia, dysphagia or odynophagia. Patient denies melena, hematochezia, unintentional weight loss or ribbon like stools. Will call Arin to find out when exactly was his last colonoscopy [facility] Medical History Gilbert's disease Pancreatic insufficiency Irritable bowel syndrome Surgical History History of esophagogastroduodenoscopy (EGD) Hx of colonoscopy Family History Mother HTN (hypertension) Cancer Sister HTN (hypertension) Cancer Father Cancer Social History Household Members: Family Alcohol intake: never Patient Tobacco Use Status: Never used Tobacco Review of Systems Const Denies weight gain and Denies weight loss ENT Reports no additional complaints, Denies dysphagia and Denies odynophagia Card Reports no additional complaints Resp Reports no additional complaints GI Denies abdominal pain, Denies belching, Denies melena, Denies bloating, Denies change in bowel habits, Denies dysphagia, Denies excessive flatus, Denies dyspepsia, Denies heartburn, Denies diarrhea, Denies loose stools, Denies nausea, Denies odynophagia and Denies vomiting Reports no additional complaints Musc Reports no additional complaints Neuro Reports no additional complaints Psych Reports no additional complaints Endo Reports no additional complaints Physical Exam Vital Signs: BMI result Body Mass Index 20.8 Const General: healthy appearing, no acute distress and well developed Nutritional Appearance: well nourished Orientation/consciousness: patient oriented x3 Resp Effort & Inspection: normal respiratory effort, able to speak in complete sentences, no tracheal deviation and symmetric chest movement Auscultation: clear to auscultation bilaterally Cardio Rate: regular rate Heart sounds: S1 normal heart sound present and S2 normal heart sound present GI Inspection: Yes normal to inspection and No distended Palpation (GI): Soft to palpation, not firm, Tenderness to palpation present (GI) in the LLQ and No hepatosplenomegaly present Auscultation: normal bowel sounds General: Yes no CVA tenderness Back/Spine/Pelvis Back: no CVA tenderness Skin General skin exam: elasticity normal, turgor normal and dry skin Neuro General: patient oriented x3 Psych Appearance: grossly normal Mental Status: mental status grossly normal Assessment & Plan Assessment & Plan (1) Pancreatic insufficiency: Code(s): K86.89 - Other specified diseases of pancreas Category: Medical (2) Gilbert's disease: Code(s): E80.4 - Gilbert syndrome Category: Medical (3) IBS (irritable bowel syndrome): Code(s): K58.9 - Irritable bowel syndrome, unspecified Qualifiers: Irritable bowel syndrome type: without diarrhea Qualified Code(s): K58.9 - Irritable bowel syndrome, unspecified Plan Patient will continue taking enzymes with meals. Continue avoiding dietary triggers in late night snacking. Staying upright for minimum 3 hours after meals discussed with patient. Staff to call [facility] for his last colonoscopy screening with biopsy. Follow-up in 1 year. Patient was encouraged to call our office if he will have any GI concerning symptoms. Both patient and his sister are agreeable to plan of care and verbalizes understanding of instructions. They were given the opportunity to ask questions and all questions answered. Thank you for allowing me to participate in his care Medications: Refilled nraabh-rlwwkiha-lsgoeel 20,000-63,000- 84,000 unit (Zenpep) administer with meals and/or snacks 1 cap PO QID 90 days 360 caps 3RF Coding Level of Care Code Est Pt Level 4 (30045) Complex EM visit Add On G2211 Diagnoses Pancreatic insufficiency K86.89 Gilbert's disease E80.4 Irritable bowel syndrome without diarrhea K58.9 Irritable bowel syndrome type: without diarrhea Time Spent (min) 35 Comment 20 minutes spent with patient and additional 15 minutes spent reviewing his records
--- OUTSIDE RECORDS SUMMARY | 2024-05-14 09:20 | XMS_ITS ---
Author Name [facility] Organization Unknown History of Medication Use Medication Directions Dispensed Refills Start Date End Date Stat us loperamide (IMODIUM A-D) 2 MG tablet Take 1 tablet (2 mg total) by mouth. 11/21/2023 active thiamine 50 MG tablet Take 2 tablets (10 0 mg total) by mouth daily. 11/21/2023 active mirtazapine (REMERON) 30 MG tablet 11/21/2023 active atorvastatin (LIPITOR) tablet 40 mg Take 1 tablet (40 mg total) by mouth. 11/21/2023 active docusate sodium (COLACE) 100 MG capsule Take 1 capsule (100 mg total) by mouth 2 (two) times a day. 11/21/2023 active dicyclomine (BENTYL) 10 MG capsule Take 1 capsule (10 mg total) by mouth. 11/21/2023 active valsartan (DIOVAN) tablet 160 mg 11/21/2023 active FLORANEX GRANULES (lactobacillus) PACK packet Take 1 Package by mouth. 11/21/2023 active melatonin 3 MG TABS tablet Take 2 tablets (6 mg total) by mouth every night at bedtime. 11/21/2023 active pancrelipase, Mih-Qbur-Sjtk, (CREON) 45335-65883 units CPEP Take 1 capsule (24,000 units of lipase total) by mouth 4 (four) times a day. 11/21/2023 active carvedilol (COREG) 3.125 MG tablet Take 1 tablet (3.125 mg total) by mouth 2 (two) times a day. 11/21/2023 active aspirin 81 MG chewable tablet Chew 1 tablet (81 mg total) by mouth daily. 11/21/2023 active linaCLOtide (Linzess) 72 MCG CAPS Take 72 mcg by mouth. 11/21/2023 active D3 Super Strength 50 MCG (2000 UT) CAPS Take 1 capsule by mouth daily. 11/21/2023 active losartan (COZAAR) tablet 25 mg 11/21/2023 active tamsulosin (FLOMAX) 0.4 MG CAPS Take 1 capsule (0.4 mg total) by mouth. 11/21/2023 active Citrucel 500 MG TABS TAKE ONE TABLET BY MOUTH EVERY DAY WITH FULL GLASS OF WATER 11/21/2023 active Problems Problem Status Onset Date Problem Type Date of Resolution Source Cerebrovascular accident (CVA) due to occlusion of left middle cerebral artery (HCC) active EncounterDiagnosisAct CTTHNE MG
== END 2024-05-14 09:55 | disposition home or self-care (01) ==
PROVIDERS: Visit Provider Nurse Practitioner Family
DX: K86.89 Other specified diseases of pancreas (principal); E80.4 Gilbert syndrome; K58.9 Irritable bowel syndrome, unspecified
CPT/HCPCS: 99214; G2211

== ENCOUNTER → 2024-05-14 09:15 | Outpatient (BNVA) | payer MEDICARE, SELFPAY | PROVIDERS: Visit Provider Nurse Practitioner Family | DX: K86.89 Other specified diseases of pancreas (principal); E80.4 Gilbert syndrome; K58.9 Irritable bowel syndrome, unspecified | CPT/HCPCS: 99212 ==

== ENCOUNTER 2024-12-18 08:25 | Outpatient (AMB) | payer MEDICARE, SELFPAY ==
--- NOTE | 2024-12-18 08:31 | A.OFFVIS_ITS ---
Vital Signs 12/18/24 08:39 Height 5 ft 5 in Weight 119 lb 7.849 oz BMI 19.9 BP 152/60 H Blood Pressure Location Lt brachial Position Sitting Pulse 46 L Pulse Source Pulse Oximeter Pulse Oximetry (%) 99 Oxygen Delivery Method Room Air Intake Visit Reasons: f/u r/s Intake Note: Est pt for mgmt of Pancreatic insufficiency, GERD CC; Pt denies any significant changes or concerns since last visit. Allergies No Known Allergies Allergy (Verified 12/18/24 08:37) HPI HPI f/u r/s: Details: LAST VISIT: Pancreatic insufficiency Gilbert's disease IBS (irritable bowel syndrome) Plan Patient will continue taking enzymes with meals. Continue avoiding dietary triggers in late night snacking. Staying upright for minimum 3 hours after meals discussed with patient. Staff to call [facility] for his last colonoscopy screening with biopsy. Follow-up in 1 year. Patient was encouraged to call our office if he will have any GI concerning symptoms. Both patient and his sister are agreeable to plan of care and verbalizes understanding of instructions. They were given the opportunity to ask questions and all questions answered. ? Thank you for allowing me to participate in his care Refilled [id number]-[id number] 20,000-63,000- 84,000 unit (Zenpep) administer with meals and/or snacks 1 cap PO QID 90 days 360 caps 3RF TODAY'S VISIT Patient is here today for follow-up. Patient is accompanied by his sister in her . Patient reports to be doing well. Denies any abdominal pain or d iscomfort. Patient's sister states that he has a good appetite although sometimes he refused to eat certain food. Patient is afraid that he is going to get abdominal pain or diarrhea. Patient denies any acid reflux, dyspepsia, dysphagia or odynophagia. Patient denies any melena, hematochezia, unintentional weight loss or ribbon like stools. Although patient did lose 5 lb in the past 6 months. Patient denies any nausea or vomiting. Patient is still taking digestive enzymes and tolerating them well [facility] Medical History (Updated 12/18/24 @ 09:14 by Kim Perez [facility]) Gilbert's disease Pancreatic insufficiency Irritable bowel syndrome Surgical History History of esophagogastroduodenoscopy (EGD) Hx of colonoscopy Family History Mother HTN (hypertension) Cancer Sister HTN (hypertension) Cancer Father Cancer Social History Household Members: Family Alcohol intake: never Patient Tobacco Use Status: Never used Tobacco Review of Systems Const Denies weight gain and Denies weight loss ENT Reports no additional complaints, Denies dysphagia and Denies odynophagia Card Reports no additional complaints Resp Reports no additional complaints GI Denies abdominal pain, Denies belching, Denies melena, Denies bloating, Denies change in bowel habits, Denies dysphagia, Denies excessive flatus, Denies dyspepsia, Denies heartburn, Denies diarrhea, Denies loose stools, Denies nausea, Denies odynophagia and Denies vomiting Reports no additional complaints Musc Reports no additional complaints Neuro Reports no additional complaints Psych Reports no additional complaints Endo Reports no additional complaints Physical Exam Vital Signs: Last Vital Signs Pulse 46 L 12/18/24 08:39 BP 152/60 H 12/18/24 08:39 Pulse Ox 99 12/18/24 08:39 Oxygen Delivery Method Room Air 12/18/24 08:39 BMI result Body Mass Index 19.9 Const General: healthy appearing, no acute distress and well developed Nutritional Appearance: well nourished Orientation/consciousness: patient oriented x3 Resp Effort & Inspection: normal respiratory effort, able to speak in complete sentences, no tracheal deviation and symmetric chest movement Auscultation: clear to auscultation bilaterally Cardio Rate: regular rate Heart sounds: S1 normal heart sound present and S2 normal heart sound present GI Inspection: Yes normal to inspection and No distended Palpation (GI): Soft to palpation, not firm, Tenderness to palpation present (GI) in the LLQ and No hepatosplenomegaly present Auscultation: normal bowel sounds General: Yes no CVA tenderness Back/Spine/Pelvis Back: no CVA tenderness Skin General skin exam: elasticity normal, turgor normal and dry skin Neuro General: patient oriented x3 Psych Appearance: grossly normal Mental Status: mental status grossly normal Assessment & Plan Assessment & Plan (1) Pancreatic insufficiency: Code(s): K86.89 - Other specified diseases of pancreas Category: Medical (2) Gilbert's disease: Code(s): E80.4 - Gilbert syndrome Category: Medical (3) Irritable bowel syndrome: Code(s): K58.9 - Irritable bowel syndrome, unspecified Category: Medical Qualifiers: Irritable bowel syndrome type: without diarrhea Qualified Code(s): K58.9 - Irritable bowel syndrome, unspecified Plan Patient will continue digestive enzymes. Continue avoiding dietary triggers. Staying upright for minimum 3 hours after meals discussed with patient. Increase fluid intake and activity to promote better bowel motility. His last colonoscopy was in July of 2020 he will be due for 1 next year. Patient denies any melena, hematochezia, unintentional weight loss or ribbon like stools. Patient denies any dyspepsia, dysphagia or odynophagia. Follow-up in the office in 6 months, sooner on as needed basis. Patient is agreeable to this plan and verbalizes understanding of instructions. He was given the opportunity to ask questions and all questions answered. Thank you for allowing me to participate in his care Coding Level of Care Code Est Pt Level 3 (95422) Diagnoses Pancreatic insufficiency K86.89 Gilbert's disease E80.4 Irritable bowel syndrome without diarrhea K58.9 Irritable bowel syndrome type: without diarrhea Time Spent (min) 30 Comment 20 minutes spent with patient and additional 10 minutes spent reviewing his records
--- OUTSIDE RECORDS SUMMARY | 2024-12-18 08:35 | XMS_ITS | Referral Summary ---
Author Organization [facility] Address [address] [place] [address] Care Team Providers Care Nip Wrapper Name Role Phone Jd Autsin MD Primary Care Provider [phone] Allergies Active Allergy Reactions Criticality Noted Date Comments Melhiv-Mkdvcpsv-Avxultj Swelling High 01/05/2022 tongue Medications carvediloL (COREG) 6.25 mg tablet 12/25/2021 Active losartan (COZAAR) 25 mg tablet 12/25/2021 Active valsartan (DIOVAN) 80 mg tablet Take 80 mg by mouth once a day. 08/09/2021 Active Linzess 72 mcg Take 72 mcg by mouth once a day. 03/16/2021 Active loperamide (IMODIUM) 2 mg capsule Take 2 mg by mouth 4 times a day as needed. 02/09/2021 Active mirtazapine (REMERON) 15 mg tablet 12/25/2021 Active cholecalciferol (VITAMIN D3) 2,000 unit capsule Take 1 capsule by mouth once a day. 05/08/2021 Active Active Problems Problem Noted Date Diagnosed Date Chronic abdominal pain 01/05/2022 Pancreatic insufficiency 01/05/2022 Social History Tobacco Use Types Packs/Day Years Used Date Smoking Tobacco: Never Smokeless Tobacco: Never Tobacco Cessation:Counseling Given: Not Answered Sex and Gender Information Value Date Recorded Sex Assigned at Male 01/02/2022 12:58 PM EDT Legal Sex Male 6:12 PM EDT Gender Identity Male 01/02/2022 12:58 PM EDT Sexual Orientation Straight 01/02/2022 12 :58 PM EDT Last Filed Vital Signs Vital Sign Reading Time Taken Comments Blood Pressure 155/69 01/05/2022 8:35 AM EDT Pulse 54 01/05/2022 8:35 AM EDT Temperature 37 C (98.6 F) 01/05/2022 8:35 AM EDT Respiratory Rate 16 01/05/2022 8:35 AM EDT Oxygen Saturation - - Inhaled Oxygen Concentration - - Weight 54.3 kg (119 lb 9.6 oz) 01/05/2022 8:35 A M EDT Height 160 cm (5' 3 ) 01/05/2022 8:35 AM EDT Body Mass Index 21.19 01/05/2022 8:35 AM EDT Plan of Treatment Not on file Insurance [employer] Care Teams Nip Wrapper Relationship Specialty Start Date End Date Jd Austin MD [address] [place] [id number] PCP - General Internal Medicine 01/05/22
--- OUTSIDE RECORDS SUMMARY | 2024-12-18 08:35 | XMS_ITS | Clinical Summary ---
Author Organization [facility] Address [address] [place] [address] Care Team Providers Care Child Care Group Leader Name Role Phone Jd Austin MD Primary Care Provider Unavailab le Allergies Active Allergy Reactions Criticality Noted Date Comments Lactose 02/22/2023 Lipase Swelling High 01/05/2022 tongue Medications Medication Sig Dispensed Refills Start Date End Date Status aspirin 81 MG chewable tablet Chew 1 tablet (81 mg total) by mouth daily. 0 11/29/2022 Active carvedilol (COREG) 3.125 MG tablet Take 1 tablet (3.125 mg total) by mouth 2 (two) times a day. 0 11/22/2022 Active D3 Super Strength 50 MCG (2000 UT) CAPS Take 1 capsule by mouth daily. 0 01/27/2023 Active dicyclomine (BENTYL) 10 MG capsule Take 1 capsule (10 mg total) by mouth. 0 10/08/2022 Active docusate sodium (COLACE) 100 MG capsule Take 1 capsule (100 mg total) by mouth 2 (two) times a day. 0 11/23/2022 Active FLORANEX GRANULES (lactobacillus) PACK packet Take 1 Package by mouth. 0 Active linaCLOtide (Linzess) 72 MCG CAPS Take 72 mcg by mouth. 0 03/16/2021 Active loperamide (IMODIUM A-D) 2 MG tablet Take 1 tablet (2 mg total) by mouth. 0 12/03/2022 Active losartan (COZAAR) tablet 25 mg 0 12/25/2021 Active melatonin 3 MG TABS tablet Take 2 tablets (6 mg total) by mouth every night at bedtime. 0 11/22/2022 Active Citrucel 500 MG TABS TAKE ONE TABLET BY MOUTH EVERY DAY WITH FULL GLASS OF WATER 0 12/31/2022 Active mirtazapine (REMERON) 30 MG tablet 0 02/21/2023 Active pancrelipase, Nfb-Gmdg-Gart, (CREON) 59625-36476 units CPEP Take 1 capsule (24,000 units of lipase total) by mouth 4 (four) times a day. 0 10/08/2022 Active tamsulosin (FLOMAX) 0.4 MG CAPS Take 1 capsule (0.4 mg total) by mouth. 0 10/24/2022 Active thiamine 50 MG tablet Take 2 tablets (100 mg total) by mouth daily. 0 Active valsartan (DIOVAN) tablet 160 mg 0 02/21/2023 Active Family History Relation Name Status Comments Father Mother Social History Tobacco Use Types Packs/Day Years Used Date Smoking Tobacco: Never Assessed Tobacco Cessation:Counseling Given: Not Answered Sex and Gender Information Value Date Recorded Sex Assigned at Male 02/26/2023 10:14 AM EDT Gender Identity Not on file Sexual Orientation Not on file Job Start Date Occupation Industry Not on file Not on file Not on file Last Filed Vital Signs Vital Sign Reading Time Taken Comments Blood Pressure 152/67 02/22/2023 8:59 AM EDT Pulse 47 02/22/2023 8:59 AM EDT Temperature - - Respiratory Rate 16 02/22/2023 8:59 AM EDT Oxygen Saturation 98% 02/22/2023 8:59 AM EDT Inhaled Oxygen Concentration - - Weight 52.1 kg (114 lb 12.8 oz) 02/22/2023 8:59 AM EDT Height 160 cm (5' 3 ) 02/22/2023 8:59 AM EDT Body Mass Index 20.34 02/22/2023 8:59 AM EDT Plan of Treatment Health Maintenance Due Date Last Done Comments Hepatitis C Screening 1945 COVID-19 Vaccine (#1) 1945 Depression Screening 1959 Preventative Health Evaluation 1965 Shingrix-Zoster Vaccine (1 o f 2) 1997 Fall Risk Assessment 01/08/2012 RSV Adult > 60+ Yrs or (1 - 1-dose 75+ series) 2022 Influenza Vaccine (#1) 2025 DTap / Tdap / Td (2 - Td or Tdap) 12/03/2032 12/03/2022 Pneumococcal Vaccine Completed 06/06/2016, 04/08/2012 Hepatitis B Vaccines Aged Out No long er eligible based on patient's age to complete this topic RSV Ped < 20 months Aged Out No longe r eligible based on patient's age to complete this topic Care Teams Child Care Group Leader Relationship Specialty Start Date End Date Jd Austin MD PCP - General Internal Medicine 02/22/23
--- OUTSIDE RECORDS SUMMARY | 2024-12-18 08:35 | XMS_ITS ---
[facility] Name [facility] Unknown History of Medication Use Medication Directions Dispensed Refills Start Date End Date Stat us mirtazapine (REMERON) 30 MG tablet 02/21/2023 active valsartan (DIOVAN) tablet 160 mg 02/21/2023 active Citrucel 500 MG TABS TAKE ONE TABLET BY MOUTH EVERY DAY WITH FULL GLASS OF WATER 12/31/2022 active loperamide (IMODIUM A-D) 2 MG tablet Take 1 tablet (2 mg total) by mouth. 12/03/2022 active aspirin 81 MG chewable tablet Chew 1 tablet (81 mg total) by mouth daily. 11/29/2022 active atorvastatin (LIPITOR) tablet 40 mg Take 1 tablet (40 mg total) by mouth. 10/24/2022 03/13/2023 active pancrelipase, Bjl-Orgq-Vmbe, (CREON) 90260-22884 units CPEP Take 1 capsule (24,000 units of lipase total) by mouth 4 (four) times a day. 10/08/2022 active Allergies Allergen Reaction Severity Comment Documented Date Source Statu s LACTOSE 02/22/2023 [facility]THNEMG active LIPASE SWELLING tongue 01/05/2022 [facility]THNEMG active Problems Problem Status Onset Date Problem Type Date of Resolution Source Cerebrovascular accident (CVA) due to occlusion of left middle cerebral artery (HCC) active EncounterDiagnosisAct CTTHNE MG
--- OUTSIDE RECORDS SUMMARY | 2024-12-18 08:35 | XMS_ITS | Clinical Summary ---
Author Organization [address] [place] [address] Address [address] [place] [address] Phone Care Team Providers Care Range Ecologist Name Role Phone Jd Austin MD Primary Care Provider [phone] Allergies No known active allergies Medications clopidogreL (PLAVIX) 75 mg tablet Take 1 tablet (75 mg total) by mouth 1 (one) time each day. 02/18/20 24 Active aspirin 81 mg chewable tablet 11/30/19 23 Active Lactobacillus acidophilus (PROBIOTIC ORAL) Take by mouth. Activ e pancrelipase, Jnp-Ahwg-Gvqq, (CREON) 24,000-76,000 -120,000 unit capsule Take 1 capsule (24,000 Units total) by mouth 4 (four) times a day. 10/09/19 23 Active UNABLE TO FIND Lactobacillus (Floranex) Powd Pack Sig - Route: Take 1 Package by mouth 3 times daily. - Oral Active melatonin 3 mg tablet Take 1 Tablet by mouth at bedtime. 11/23/19 23 Active thiamine (VITAMIN B-1) 50 mg tablet Take 2 tablets (100 mg total) by mouth 1 (one) time each day. Active dicyclomine (BENTYL) 10 mg capsule Take 1 capsule (10 mg total) by mouth 2 (two) times a day. 10/09/19 23 Active carvediloL (COREG) 3.125 mg tablet Take 2 tablets (6.25 mg total) by mouth 2 (two) times a day with meals. 180 tablet 05/25/20 24 Active ipratropium (ATROVENT) 42 mcg (0.06 %) nasal spray Administer 2 sprays into each nostril 4 (four) times a day. 15 mL 1 05/25/20 24 Active sertraline (ZOLOFT) 50 mg tablet TAKE ONE TABLET BY MOUTH EVERY DAY 30 tablet 2 06/22/19 25 Active amLODIPine (NORVASC) 2.5 mg tablet Take 1 tablet (2.5 mg total) by mouth 1 (one) time each day. 30 each 11 08/07/19 25 2025 Active atorvastatin (LIPITOR) 40 mg tablet TAKE ONE TABLET BY MOUTH DAILY AT BEDTIME 90 tablet 1 09/24/19 25 Active tamsulosin (FLOMAX) 0.4 mg 24 hr capsule Take 1 capsule (0.4 mg total) by mouth 1 (one) time each day. 90 capsule 1 09/24/19 25 Active mirtazapine (REMERON) 30 mg tablet TAKE ONE TABLET BY MOUTH DAILY AT BEDTIME 30 tablet 2 10/06/19 25 Active valsartan (DIOVAN) 160 mg tablet TAKE ONE TABLET BY MOUTH EVERY DAY 90 tablet 5 12/04/19 25 Active valsartan (DIOVAN) 160 mg tablet Take 1 tablet (160 mg total) by mouth 1 (one) time each day. 02/22/20 23 2024 Discontinued Active Problems Problem Noted Date Diagnosed Date Anxiety 04/24/2024 Abdominal discomfort 04/24/2024 Epigastric discomfort 04/24/2024 Gastritis 04/24/2024 IBS (irritable bowel syndrome) 04/24/2024 Passage of loose stools 04/24/2024 Tubular adenoma of rectum 04/24/2024 Abdominal cramping 04/24/2024 Embolism ([facility] V24, [facility] V28) 08/01/2023 Overview (04/24/2024): Suspect subacute embolism in RUE Snoring 08/03/2019 Overview (04/24/2024): 04/2019 Home Sleep Study did not reveal sleep apnea or nocturnal hypoxia. Chronic insomnia 02/13/2018 Hypertension 02/13/2018 BPH (benign prostatic hyperplasia) 11/14/2017 Nonrheumatic aortic valve insufficiency 10/02/19 17 Internal hemorrhoids 12/08/2014 Peripheral neuropathy 11/01/2014 Primary hypertrophic cardiom yopathy ([facility] V24, [facility] V28) 11/01/2014 Immunizations Name Administration Dates Next Due Pneumococcal conjugate 13 va lent (Prevnar 13, PCV13) 2mo and older 06/06/2016 Pneumococcal conjugate 20 va lent (Prevnar 20, PCV 20) 2mo and older 12/03/2022 Pneumococcal polysaccharide 23 valent (Pneumovax 23) 2yo and older 04/08/2012 Tdap Tetanus diptheria acell ular pertussis (Boostrix; Adacel) 7yo and older 12/03/2022 Tetanus Toxoid, Unspecified 02/19/2007 Surgical History Surgery Date Site/Laterality Comments CATARACT EXTRACTION PROCEDURE: HISTORICAL CATARACT REMOVAL ESOPHAGOGASTRODUODENOSCOPY PROCEDURE: UT EGD TRANSORAL BIOPSY SINGLE/MULTIPLE; COMMENT: Performed on June 07, [address] Jessica Melendez COLONOSCOPY PROCEDURE: HISTORICAL COLONOSCOPY Medical History Medical History Date Comments Aortic regurgitation 02/13/2018 DX:Aortic r egurgitation BPH (benign prostatic hyperplasia) 11/14/2017 DX:BPH (benign prostatic hyperplasia) Chronic insomnia 02/13/2018 DX:Chronic inso mnia History of colitis 02/02/2015 DX:History of colitis History of Helicobacter pylo ri infection 02/02/2015 DX:History of Helicobacter p ylori infection Hypertension 02/13/2018 DX:Hypertension Internal hemorrhoids 12/08/2014 DX:Internal hemorrhoids Nonrheumatic aortic valve insufficiency 10/01/2016 DX:Nonrheumatic aortic valve insufficiency Peripheral neuropathy 11/01/2014 DX:Periphe ral neuropathy Primary hypertrophic cardiom yopathy (CMS/HCC V24, CMS/HCC V28) 11/01/2014 DX:Primary hypertrophic cardiomyopathy (HCC) Epigastric discomfort DX:Epigast freddy discomfort Abdominal discomfort DX:Abdomina l discomfort Passage of loose stools DX:Passa ge of loose stools Anxiety DX:Anxiety IBS (irritable bowel syndrome) D X:IBS (irritable bowel syndrome) Abdominal cramping DX:Abdominal cramping Gastritis DX:Gastritis Tubular adenoma of rectum DX:Tub ular adenoma of rectum Esophageal reflux DX:Esophageal reflux Family History Relation Name Status Comments Father Mother Sister Alive Social History Tobacco Use Types Packs/Day Years Used Date Smoking Tobacco: Never Smokeless Tobacco: Never Alcohol Use Standard Drinks/Week Comments No 0 (1 standard drink = 0.6 oz pur e alcohol) Sex and Gender Information Value Date Recorded Sex Assigned at Not on file Legal Sex Male 11:42 AM EST Gender Identity Not on file Sexual Orientation Not on file Obstetrics History Last Filed Vital Signs Vital Sign Reading Time Taken Comments Blood Pressure 140/62 08/06/2024 11:30 AM EDT Pulse 51 08/06/2024 11:30 AM EDT Temperature 36.1 C (96.9 F) 08/06/2024 11:30 AM EDT Respiratory Rate - - Oxygen Saturation 99% 08/06/2024 11:30 AM EDT Inhaled Oxygen Concentration - - Weight 53.3 kg (117 lb 9.6 oz) 08/06/2024 11:30 AM EDT Height 157.5 cm (5' 2 ) 05/28/2023 11:07 AM EST Body Mass Index 21.51 05/28/2023 11:07 AM EST Plan of Treatment Upcoming Encounters Date Type Department Care Team (Late st Contact Info) Description 02/12/2025 9:00 AM EDT Office Visit Internal Medicine - [place] [address] [facility] [address] [place] [address] Jd Austin MD [address] [facility] [address] [place] [address] Health Maintenance Due Date Last Done Comments Zoster Vaccines (2 of 3) 01/05/2016 11/10/2015 RSV Immunization Adult Patients (1 - 1-dose 75+ series) 2022 Falls Risk Assessment 04/24/2022 Hepatitis C Screening 04/24/2022 Medicare Annual Wellness Visit 04/24/2022 Social Influencers of Health Screening 04/24/2022 COVID-19 Vaccine ( season) 2024 08/21/2022, 04/27/2021, 09/24/2020, Additional history exists Hypertension/CHF/CAD Annual BMP Blood Test 02/27/2024 02/26/2023 Depression Screening 05/27/2024 Influenza Vaccine (#1) 2025 , 02/04/2023, 01/06/2021, Additional history exists Cholesterol Screening (Lipid Panel) 02/27/2028 02/26/2023 DTaP,Tdap,and Td Vaccines (2 - Td or Tdap) 12/03/2032 12/03/2022 Pneumococcal Vaccine: 50+ Years Completed 12/03/2022, 06/06/2016, 04/08/2012 HIB Vaccines Aged Out No longer eligi ble based on patient's age to complete this topic HPV Vaccines Aged Out No longer eligi ble based on patient's age to complete this topic Hepatitis A Vaccines Aged Out No long er eligible based on patient's age to complete this topic Hepatitis B Vaccines Aged Out No long er eligible based on patient's age to complete this topic IPV Vaccines Aged Out No longer eligi ble based on patient's age to complete this topic MMR Vaccines Aged Out No longer eligi ble based on patient's age to complete this topic Meningococcal ACWY Vaccine Aged Out N o longer eligible based on patient's age to complete this topic Meningococcal B Vaccine Aged Out No l onger eligible based on patient's age to complete this topic RSV Immunization Patients Under 20 months Aged Out No longer eligible based on patient's age to complete this topic Varicella Vaccines Aged Out No longer eligible based on patient's age to complete this topic Procedures Procedure Name Priority Date/Time Associated Diagnosis Comments ANNUAL BMP BLOOD TEST Routine 02/26/2023 LIPID PANEL Routine 02/26/2023 from Last 3 Months or Most Recently Relevant to Health Maintenance Results * Annual BMP Blood Test (02/26/2023) [facility] Annual BMP Blood Test ABSTRACTED Historical Provider HEALTH MAINTENANCE Final Result * (ABNORMAL) Lipid panel (02/26/2023) [facility] LDL/HDL Ratio 3 0 - 4 Triglycerides 54 0 - 150 mg/dL Cholesterol 102 0 - 200 mg/dL HDL 39(A) >=40 mg/dL LDL Cholesterol 53 0 - 100 mg/dL Blood Venous blood specimen / Unknown Historical Provider LAB BLOOD ORDERABLES Meghan l Result from Last 3 Months or Most Recently Relevant to Health Maintenance Insurance [employer] MEDICARE Advance Directives Documents on File Type Date Recorded Patient Universal Branch Consultant Expl anation Health Care Decision (hx) 10/24/2022 HE ALTH CARE PROXY Health Care Decision (hx) 10/24/2022 HE ALTH CARE PROXY Health Care Decision (hx) 10/24/2022 HE ALTH CARE PROXY Health Care Decision (hx) 10/24/2022 HE ALTH CARE PROXY Health Care Decision (hx) 10/24/2022 HE ALTH CARE PROXY Health Care Decision (hx) 10/24/2022 HE ALTH CARE PROXY Health Care Decision (hx) 10/24/2022 HE ALTH CARE PROXY Care Teams Range Ecologist Relationship Specialty Start Date End Date Jd Austin MD [address] [place] [phone] PCP - General Internal Medicine 04/09/18
[2024-12-18 08:39] VITALS: BP 152/60; PULSE 46; O2SAT 99; BMI 19.9
== END 2024-12-18 09:13 | disposition home or self-care (01) ==
LOC: HO.HGI 08:25
PROVIDERS: Visit Provider Nurse Practitioner Family
DX: K86.89 Other specified diseases of pancreas (principal); E80.4 Gilbert syndrome; K58.9 Irritable bowel syndrome, unspecified
CPT/HCPCS: 99213

== ENCOUNTER → 2024-12-18 08:25 | Outpatient (BNVA) | payer MEDICARE, SELFPAY | PROVIDERS: Visit Provider Nurse Practitioner Family | DX: K86.89 Other specified diseases of pancreas (principal); E80.4 Gilbert syndrome; K58.9 Irritable bowel syndrome, unspecified; Z79.899 Other long term (current) drug therapy | CPT/HCPCS: 99212 ==